=== PATIENT | male | born 1970 | race Caucasian/White ===

== ENCOUNTER 2019-01-30 00:55 | Emergency (ER) | payer OTHER ==
[~2019-01-30] VITALS: Ht 162.6 cm; Wt 90.2 kg
--- NOTE | 2019-01-30 01:05 | NUR ---
FIRST CONTACT WITH PT. PT C/O RLQ ABD PAIN, GROIN PAIN 02/25 PT REPORTS HE IS ALSO URINATING BLOOD. PT C/O NAUSEA WELL. PT'S AOX4. RESPS EVEN AND UNLABORED. AWAITING ORDERES.
--- NOTE | 2019-01-30 01:06 | NUR ---
PT AMB TO BR AND BACK TO ROOM WITH STEADY GAIT.
[2019-01-30] MEDS ORDERED: KETOROLAC 30 MG/1 ML ONE (01:19)
[2019-01-30] MEDS ORDERED: MORPHINE SULFATE 4 MG/ML, 1ML ONE (01:19)
[2019-01-30] MEDS ORDERED: ONDANSETRON 2MG/ML, 2ML ONE (01:19)
[2019-01-30 01:30] LABS: CULTURE INDICATED? YES; MICROSCOPIC INDICATED
[2019-01-30] MEDS ORDERED: MORPHINE SULFATE 4 MG/ML, 1ML IVPush PRN (01:30)
[2019-01-30] MEDS ORDERED: KETOROLAC 30 MG/1 ML IVPush ONE (01:30)
[2019-01-30] MEDS ORDERED: ONDANSETRON 2MG/ML, 2ML IVPush ONE (01:30)
[2019-01-30 01:34] LABS: BASOPHILS # (AUTO) 0.02 x10^3/uL (0-0.1); BASOPHILS % (AUTO) 0 % (0-1); EOSINOPHILS # (AUTO) 0.13 x10^3/uL (0-0.4); EOSINOPHILS % (AUTO) 2 % (1-7); LYMPHOCYTES # (AUTO) 0.69 x10^3/uL (1-3.4); LYMPHOCYTES % (AUTO) 8 % (22-44); MD NO; MEAN CORPUSCULAR HEMOGLOBIN 31.3 pg (27.5-34.5); MEAN CORPUSCULAR HGB CONC 33.7 g/dL (33.2-36.2); MEAN CORPUSCULAR VOLUME 92.8 fL (81-97); MEAN PLATELET VOLUME 7.5 fL (7.4-10.4); MONOCYTES # (AUTO) 0.35 x10^3/uL (0.2-0.8); MONOCYTES % (AUTO) 4 % (2-9); NEUTROPHILS # (AUTO) 7.72 x10^3/uL (1.8-6.8); NEUTROPHILS % (AUTO) 87 % (42-75); PLATELET COUNT 296 x10^3/uL (130-400); RED BLOOD COUNT 4.99 x10^6/uL (4.38-5.82); RED CELL DISTRIBUTION WIDTH 14.2 % (9.4-14.8)
[2019-01-30 01:39] LABS: ALBUMIN 4.1 g/dL (3.4-5.0); ANION GAP 10 mmol/L (5-15); CHLORIDE 102 mmol/L (98-107); CREATININE 1.27 mg/dL (0.7-1.3)
--- NOTE | 2019-01-30 01:46 | NUR ---
PT MEDICATED PER EMAR. PT TOELRATED WELL.
--- NOTE | 2019-01-30 02:09 | NUR ---
PT BACK TO ROOM FROM CT.
[2019-01-30 02:35] VITALS: BP 122/77
--- NOTE | 2019-01-30 02:35 | NUR ---
PT'S PAIN LEVEL IS 0/10 AT THIS TIME.
--- NOTE | 2019-01-30 02:53 | NUR ---
PT GIVEN DC INSTRUCTIONS AND SCRIPTS. PT EDUCATED REGARDING DC MEDICATIONS. PT'S AOX4. RESPS EVEN AND UNLABORED. NO AUCTE DISTRESS AT DC. PT AMB TO DC WITH STEADY GAIT.
== END 2019-01-30 02:55 | disposition home or self-care (01) ==
LOC: ED 02:20
DX: N23 Unspecified renal colic (principal); E87.6 Hypokalemia
CPT/HCPCS: 36415; 74176; 80048; 81001; 82040; 85025; 87086; 96374; 96375; 99284; J1885; J2270; J2405

== ENCOUNTER 2021-01-11 19:18 | Emergency (ER) | payer BC, OTHER ==
[~2021-01-11] VITALS: Ht 162.6 cm; Wt 88.9 kg
--- NOTE | 2021-01-11 19:45 | NUR ---
pt presents to ed with back and side pain. pt states he is having a kidney stone flare up. pt in gown, resting on gurney and placed on continuous monitoring. pt was able to provide a ua sample. ua sent to lab
[2021-01-11] MEDS ORDERED: KETOROLAC 30 MG/1 ML ONE (19:51)
[2021-01-11] MEDS ORDERED: ONDANSETRON ODT 4 MG ONE (19:51)
--- NOTE | 2021-01-11 19:55 | NUR ---
pt to us
[2021-01-11] MEDS ORDERED: KETOROLAC 30 MG/1 ML IM ONE (20:00)
[2021-01-11] MEDS ORDERED: ONDANSETRON ODT 4 MG PO ONE (20:00)
[2021-01-11 20:16] LABS: MICROSCOPIC AUTO
--- NOTE | 2021-01-11 20:25 | NUR ---
pt back from us, labs at bedside. pt placed on continuous monitoring, pt resting comfortably on gurney, denies needs at this time.
[2021-01-11 20:41] LABS: ANION GAP 10 mmol/L (5-15); BASOPHILS % (AUTO) 0 % (0-1); CALCIUM 8.6 mg/dL (8.5-10.1); CHLORIDE 105 mmol/L (98-107); CREATININE 1.58 mg/dL (0.7-1.3); EOSINOPHILS % (AUTO) 0 % (1-7); LYMPHOCYTES % (AUTO) 9 % (22-44); MEAN CORPUSCULAR HEMOGLOBIN 31.8 pg (27.5-34.5); MEAN CORPUSCULAR HGB CONC 34.6 g/dL (33.2-36.2); MONOCYTES % (AUTO) 6 % (2-9); NEUTROPHILS % (AUTO) 85 % (42-75); PLATELET COUNT 227 x10^3/uL (130-400); RED BLOOD COUNT 4.85 x10^6/uL (4.38-5.82); RED CELL DISTRIBUTION WIDTH 13.6 % (9.4-14.8)
[2021-01-11 21:18] VITALS: BP 129/66
--- NOTE | 2021-01-11 21:19 | NUR ---
pt resting on gurney, denies needs at this time.
--- NOTE | 2021-01-11 22:07 | NUR ---
Patient given discharge instructions and they have confirmed that they understand the instructions. Patient ambulatory with steady gait.
== END 2021-01-11 22:09 | disposition home or self-care (01) ==
LOC: ED 21:10
DX: N13.2 Hydronephrosis with renal and ureteral calculous obstruction (principal); E11.9 Type 2 diabetes mellitus without complications; I10 Essential (primary) hypertension
CPT/HCPCS: 36415; 76770; 80048; 81001; 85025; 96372; 99284; J1885; Q0162